=== PATIENT | male | born 1975 | race Caucasian/White ===

== ENCOUNTER → 2017-09-18 | Outpatient (CLI) | payer OTHER ==
[2017-09-19 16:12] LABS: HEMOGLOBIN 14.4 g/dL (14.1-18.0); LYMPH # 1.8 K/mm3 (0.7-4.5); LYMPH % 25.3 % (10-50)
[2017-09-19 16:58] LABS: BUN 18 mg/dL (7-18)
[2017-09-19 17:05] LABS: GFR (ESTIMATED) 93 ML/MIN (>60)
== END ==
LOC: LAB 16:05
PROVIDERS: Nurse Practitioner Family
DX: R53.83 Other fatigue (principal); E55.9 Vitamin D deficiency, unspecified; Z79.899 Other long term (current) drug therapy